=== PATIENT | male | born 1980 | race Caucasian/White ===

== ENCOUNTER 2017-10-24 17:48 | Emergency (ER) | payer BC ==
[2017-10-24] MEDS ORDERED: Gentamicin 0.3% Ophth Soln 5 ML Bottle EYERT ONE (17:49)
[2017-10-24] MEDS ORDERED: Fluorescein 1 MG Ophth Strip EYERT ONE (19:08)
[2017-10-24] MEDS ORDERED: Tetracaine HCl/PF 0.5% 4 ML Bottle EYERT ONE (19:08)
[2017-10-24] MEDS ORDERED: Balanced Salt Solution Ophth Irrig 30 ML Bottle EYERT ONE (19:27)
[2017-10-24] MEDS ORDERED: Gentamicin 0.3% Ophth Soln 5 ML Bottle ONE (20:05)
--- NOTE | 2017-10-24 20:07 | EDM.PDOC ---
ED HPI GENERAL MEDICAL PROBLEM - General Chief Complaint: ENT Problem Stated Complaint: [id number] SOMETHING IN EYE Time Seen by Provider: 10/24/17 19:15 Source of Information: Reports: Patient History Limitations: Reports: No Limitations - History of Present Illness INITIAL COMMENTS - FREE TEXT/NARRATIVE: woke with discomfort to right eye this am, throughout day irritation when turning toward right. 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 No blurred vision Right Eye Pain Score (Numeric/FACES): 3 - Related Data Allergies Allergy/AdvReac Type Severity Reaction Status Date / Time No Known Allergies Allergy Verified 10/24/17 18:24 Home Meds: Home Meds . [No Known Home Meds] 10/24/17 [History] Past Medical History - Past Health History Medical/Surgical History: Denies Medical/Surgical History Social & Family History - Tobacco Use Smoking Status *Q: Never Smoker - Caffeine Use Caffeine Use: Reports: Energy Drinks, Soda, Tea - Alcohol Use Days Per Week of Alcohol Use: 2 Number of Drinks Per Day: 2 Total Drinks Per Week: 4 - Recreational Drug Use Recreational Drug Use: No ED ROS GENERAL - Review of Systems Review Of Systems: See Below Constitutional: Reports: No Symptoms HEENT: Reports: Eye Pain (right) Respiratory: Reports: No Symptoms Cardiovascular: Reports: No Symptoms GI/Abdominal: Reports: No Symptoms Musculoskeletal: Reports: No Symptoms Skin: Reports: No Symptoms ED EXAM GENERAL W FULL EYE - Physical Exam Exam: See Below Exam Limited By: No Limitations General Appearance: Alert, Mild Distress Eye Exam: Bilateral Eye: EOMI, PERRL Eyelids: Right: Lid Everted for Exam Conjunctiva & Sclera: Right: Injected, Left: Normal Appearance Cornea Exam: Right: Examined with Flourescein, Bilateral: Normal Appearance Pupillary Size: Bilateral: 4 mm Pupillary Reaction: Bilateral: Brisk Comments: No obvious FB or corneal abrasion. Right eye irrigated. with NS. Ears: Normal External Exam Throat/Mouth: Normal Voice Head: Atraumatic, Normocephalic Neck: Normal Inspection Respiratory/Chest: Lungs Clear Neurological: Alert, Oriented, Normal Cognition Skin Exam: Warm, Dry, Intact, Normal Color Course - Vital Signs Last Recorded V/S: Last Vital Signs Temp 98.7 F 10/24/17 20:08 Pulse 74 10/24/17 20:08 Resp 17 10/24/17 20:08 BP 130/94 H 10/24/17 20:08 Pulse Ox 100 10/24/17 20:08 - Orders/Labs/Meds Meds: Medications Discontinued Medications Generic Name Dose Route Start Last Admin Trade Name Marychuy PRIvanna Reason Stop Dose Admin Balanced Salt Solution 200 ml 10/24/17 19:27 10/24/17 19:39 Eye Stream Eye Rinse EYERT 10/24/17 19:28 Not Given ONETIME ONE Fluorescein Sodium 1 mg 10/24/17 19:08 10/24/17 19:20 Ful-Britni EYERT 10/24/17 19:09 1 mg ONETIME ONE Administration Gentamicin Sulfate Confirm 10/24/17 20:05 Garamycin 0.3% Ophth Soln Administered 10/24/17 20:06 Dose 5 ml .ROUTE .STK-MED ONE Gentamicin Sulfate 5 ml 10/24/17 17:49 Garamycin 0.3% Ophth Soln EYERT 10/24/17 17:50 .STK-MED ONE Tetracaine HCl 1 ml 10/24/17 19:08 10/24/17 19:19 Tetracaine 0.5% Steri-Unit Adriana EYERT 10/24/17 19:09 2 drop ASDIRECTED ONE Administration Departure - Departure Time of Disposition: 20:05 Disposition: Home, Self-Care 01 Condition: Good Clinical Impression: Irritation of eye - Discharge Information Instructions: Ear Foreign Body, [id number] Referrals: Jaspal Whiting NP [Primary Care Provider] - Forms: ED Department Discharge Additional Instructions: follow up with eye clinic tomorrow if recurrent pain/ irritation gentamycin eye drops 2 3 times daily for 3 days rest eye tonight, tylenol or ibuprofen for discomfort.
== END 2017-10-24 20:15 | disposition home or self-care (01) ==
LOC: DL.ED 17:48
DX: H57.8 Other specified disorders of eye and adnexa (principal)
CPT/HCPCS: 99283; A9270

== ENCOUNTER 2017-12-20 11:42 | Emergency (ER) | payer OTHER, BC ==
--- NOTE | 2017-12-20 12:35 | CR ---
Clinical history: 37-year-old male right ankle injury (fall in grain bin). Interpretation: 3 views right ankle confirm pronounced asymmetric soft tissue swelling over the later al malleolus with associated underlying ankle joint effusion i.e. severe sprain. No underlying fracture or dislocation right ankle.
--- NOTE | 2017-12-20 12:38 | CR ---
Clinical history: 37-year-old male injured right foot and ankle (severe ankle sprain) i.e. missed isaias p in grain bin. Interpretation: Atavistic first cuneiform and hallux valgus with bunion. No sign of right foot fracture or dislocation. No foreign bodies.
--- NOTE | 2017-12-20 13:15 | EDM.PDOC ---
ED HPI GENERAL MEDICAL PROBLEM - General Chief Complaint: Lower Extremity Injury/Pain Stated Complaint: WC INJ R ANKLE. [phone] Time Seen by Provider: 12/20/17 13:14 Source of Information: Reports: Patient, RN, RN Notes Reviewed History Limitations: Reports: No Limitations - History of Present Illness INITIAL COMMENTS - FREE TEXT/NARRATIVE: Patient presents to ER with complaint of right ankle pain. A step broke and he fell through. He has abrasion of his right ribs. Onset: Today Location: Reports: Lower Extremity, Right Quality: Reports: Ache Severity: Moderate Improves with: Reports: None Worsens with: Reports: None Associated Symptoms: Reports: No Other Symptoms Right Ankle Pain Score (Numeric/FACES): 3 - Related Data Allergies Allergy/AdvReac Type Severity Reaction Status Date / Time No Known Allergies Allergy Verified 12/20/17 12:09 Home Meds: Home Meds . [No Known Home Meds] 10/24/17 [History] Past Medical History - Past Health History Medical/Surgical History: Denies Medical/Surgical History Gastrointestinal History: Reports: Irritable Bowel Syndrome Social & Family History - Tobacco Use Smoking Status *Q: Never Smoker - Caffeine Use Caffeine Use: Reports: Energy Drinks, Soda, Tea - Recreational Drug Use Recreational Drug Use: No Review of Systems - Review of Systems Review Of Systems: ROS reveals no pertinent complaints other than HPI. ED EXAM, GENERAL - Physical Exam Exam: See Below Exam Limited By: No Limitations General Appearance: Alert, WD/WN, No Apparent Distress Eye Exam: Bilateral Eye: Normal Inspection Ears: Normal External Exam, Normal Canal, Hearing Grossly Normal, Normal TMs Nose: Normal Inspection, Normal Mucosa, No Blood Throat/Mouth: Normal Inspection, Normal Lips, Normal Teeth, Normal Gums, Normal Oropharynx, Normal Voice, No Airway Compromise Head: Atraumatic, Normocephalic Neck: Normal Inspection, Supple, Non-Tender, Full Range of Motion Respiratory/Chest: No Respiratory Distress, Lungs Clear, Normal Breath Sounds, No Accessory Muscle Use, Chest Non-Tender Cardiovascular: Normal Peripheral Pulses, Regular Rate, Rhythm, No Edema, No Gallop, No JVD, No Murmur, No Rub GI/Abdominal: Normal Bowel Sounds, Soft, Non-Tender, No Organomegaly, No Distention, No Abnormal Bruit, No Mass (Male) Exam: Deferred Rectal (Males) Exam: Deferred Back Exam: Normal Inspection, Full Range of Motion, NT Extremities: Other (Right ankle swelling and bruising.) Neurological: Alert, Oriented, CN II-XII Intact, Normal Cognition, Normal Gait, Normal Reflexes, No Motor/Sensory Deficits Psychiatric: Normal Affect, Normal Mood Skin Exam: Other (ecchymotic right ankle. ) Lymphatic: No Adenopathy Course - Vital Signs Last Recorded V/S: Last Vital Signs Temp 99.0 F 12/20/17 11:58 Pulse 60 12/20/17 11:58 Resp 18 12/20/17 11:58 BP 119/83 12/20/17 11:58 Pulse Ox 100 12/20/17 11:58 - Orders/Labs/Meds Meds: Medications Discontinued Medications Generic Name Dose Route Start Last Admin Trade Name Freq PRN Reason Stop Dose Admin Ibuprofen 800 mg 12/20/17 13:24 12/20/17 13:30 Motrin PO 12/20/17 13:25 800 mg ONETIME ONE Administration - Radiology Interpretation Free Text/Narrative:: Right ankle x-ray: No underlying fracture or dislocation right ankle. See rad report. Right ankle and right foot pain: Atavistic first cuneiform and hallux valgus with bunion. No sign of right foot fracture or dislocation.No foreign bodies. See rad report. Departure - Departure Time of Disposition: 13:25 Disposition: Home, Self-Care 01 Condition: Fair Clinical Impression: Sprain of ankle Qualifiers: Encounter type: initial encounter Involved ligament of ankle: unspecified ligament Laterality: right Qualified Code(s): S93.401A - Sprain of unspecified ligament of right ankle, initial encounter - Discharge Information Instructions: Crutch Use, Adult, [id number]-[id number], Ankle Sprain, [id number], Elastic Bandage and RICE Referrals: Jaspal Whiting NP [Primary Care Provider] - Forms: ED Department Discharge Additional Instructions: Keep ankle wrapped as tolerated until pain and swelling improved Ibuprofen as directed for pain Elevate and ice the area as tolerated Follow up with primary care facility if no improvement May use crutches as tolerated until able to put weight on foot without pain.
[2017-12-20] MEDS ORDERED: Ibuprofen 800 MG Tab PO ONE (13:24)
== END 2017-12-20 13:38 | disposition home or self-care (01) ==
LOC: DL.ED 11:42
DX: S93.401A Sprain of unspecified ligament of right ankle, initial encounter (principal); S20.311A Abrasion of right front wall of thorax, initial encounter; W10.9XXA Fall (on) (from) unspecified stairs and steps, initial encounter
CPT/HCPCS: 73610; 73630; 99283; A9270

== ENCOUNTER 2018-02-05 20:48 | Emergency (ER) | payer BC, OTHER ==
--- NOTE | 2018-02-05 21:07 | EDM.PDOC ---
ED HPI GENERAL MEDICAL PROBLEM - General Chief Complaint: Genitourinary Problem Stated Complaint: CYST [phone] Time Seen by Provider: 02/05/18 21:07 Source of Information: Reports: Patient, RN, RN Notes Reviewed History Limitations: Reports: No Limitations - History of Present Illness INITIAL COMMENTS - FREE TEXT/NARRATIVE: Pt presents to the ER with c/o pain to the left scrotum. He states he has had a cyst there for a number of years, but this morning began having significant pain in the area, it has enlarged, and appears to have a "head" on it. Patient denies fever, chills, N/V/D, SOB, CP. Onset: Gradual Left Groin Pain Score (Numeric/FACES): 5 - Related Data Allergies Allergy/AdvReac Type Severity Reaction Status Date / Time No Known Allergies Allergy Verified 02/05/18 20:56 Home Meds: Home Meds . [No Known Home Meds] 10/24/17 [History] Past Medical History - Past Health History Medical/Surgical History: Denies Medical/Surgical History Gastrointestinal History: Reports: Irritable Bowel Syndrome Social & Family History - Caffeine Use Caffeine Use: Reports: Energy Drinks, Soda, Tea ED ROS GENERAL - Review of Systems Review Of Systems: ROS reveals no pertinent complaints other than HPI. ED EXAM, SKIN/RASH Exam: See Below Exam Limited By: No Limitations General Appearance: Alert, WD/WN, Mild Distress Eye Exam: Bilateral Eye: EOMI, Normal Inspection Ears: Normal External Exam, Hearing Grossly Normal Nose: Normal Inspection Throat/Mouth: Normal Inspection, Normal Voice, No Airway Compromise Head: Atraumatic, Normocephalic Neck: Normal Inspection, Supple, Non-Tender, Full Range of Motion Respiratory/Chest: No Respiratory Distress, Lungs Clear, Normal Breath Sounds, No Accessory Muscle Use, Chest Non-Tender Cardiovascular: Normal Peripheral Pulses, Regular Rate, Rhythm, No Edema, No Gallop, No JVD, No Murmur, No Rub Peripheral Pulses: 2+: Radial (L), Radial (R) GI/Abdominal: Normal Bowel Sounds, Soft, Non-Tender (Male) Exam: Scrotum Tenderness (L), Other (scrotal abscess, left) Rectal (Males) Exam: Deferred Back Exam: Normal Inspection, Full Range of Motion Extremities: Normal Inspection, Normal Range of Motion, Non-Tender, No Pedal Edema, Normal Capillary Refill Neurological: Alert, Oriented, CN II-XII Intact, Normal Cognition, Normal Gait, Normal Reflexes, No Motor/Sensory Deficits Psychiatric: Normal Affect, Normal Mood Skin: Warm, Dry, Intact, Normal Color, Other (Scrotal abscess approx. 1.0cm/ 1.0cm, intact, minimal erythema. Left scrotum/anterior) Location, Skin: Genital Associated features: Tenderness, Swelling Lymphatic: No Adenopathy ED SKIN PROCEDURES - I&D Site: left scrotum Skin Prep: Providone-Iodine (Betadine) Local Anesthesia: Lidocaine: 1% Plain Local Anesthetic Volume: 3cc Area Incised With: Needle (18 guage) Drainage: Purulent, Bloody, Moderate Amount Probed to Break Up Loculations: No Packed With: None Complications: No Course - Vital Signs Last Recorded V/S: Last Vital Signs Temp 98.0 F 02/05/18 20:55 Pulse 74 02/05/18 20:55 Resp 16 02/05/18 20:55 BP 147/99 H 02/05/18 20:55 Pulse Ox 100 02/05/18 20:55 - Orders/Labs/Meds Orders: Active Orders 24 hr Category Date Time Status CULTURE WOUND [RM] Urgent Lab 02/05/18 21:18 Received Meds: Medications Discontinued Medications Generic Name Dose Route Start Last Admin Trade Name Marychuy PRN Reason Stop Dose Admin Lidocaine HCl 30 ml 02/05/18 21:14 02/05/18 21:17 Xylocaine-Mpf 1% INJECT 02/05/18 21:15 30 ml ONETIME ONE Administration Trimethoprim/Sulfamethoxazole 1 tab 02/05/18 21:33 Septra Ds PO 02/05/18 21:34 ONETIME ONE Departure - Departure Time of Disposition: 21:36 Disposition: Home, Self-Care 01 Condition: Fair Clinical Impression: Abscess of scrotum - Discharge Information *PRESCRIPTION DRUG MONITORING PROGRAM REVIEWED*: No *COPY OF PRESCRIPTION DRUG MONITORING REPORT IN PATIENT ANA M: No Instructions: Skin Abscess, Gnuc-ry-Lvet, Incision and Drainage, Care After Forms: ED Department Discharge Additional Instructions: RX: Bactrim DS May use Ibuprofen and/or Tylenol as directed for pain. Monitor for changes. Follow up with your primary care facility - My Orders Last 24 Hours: My Active Orders 02/05/18 21:18 CULTURE WOUND [RM] Urgent - Assessment/Plan Last 24 Hours: My Active Orders 02/05/18 21:18 CULTURE WOUND [RM] Urgent
[2018-02-05] MEDS ORDERED: Lidocaine 1% 30 ML SDV INJECT ONE (21:14)
[2018-02-05] MEDS ORDERED: Sulfamethoxazole/Trimethoprim 800-160 MG Tab PO ONE (21:33)
== END 2018-02-05 21:48 | disposition home or self-care (01) ==
LOC: DL.ED 20:48
DX: N49.2 Inflammatory disorders of scrotum (principal)
CPT/HCPCS: 10021; 87070; 99283; A9270

== ENCOUNTER 2021-02-13 09:14 | Emergency (ER) | payer BC ==
[2021-02-13] MEDS: Ketorolac 30 MG/ML SDV IM ONE (09:59)
[2021-02-13] MEDS: Orphenadrine 60 MG/2 ML Inj IM ONE (09:59)
--- NOTE | 2021-02-13 10:24 | CR ---
PROCEDURE INFORMATION: Exam: XR Lumbosacral Spine Exam date and time: 02/13/2021 10:09 AM Age: 40 years old Clinical indication: Lumbago with sciatica; Right; Additional info: Right lateral hip pain; Radiates down through leg TECHNIQUE: Imaging protocol: XR of the lumbosacral spine. Views: 2 or 3 views. COMPARISON: No relevant prior studies available. FINDINGS: Bones/joints: There is anatomic alignment. There are 5 [id number] vertebral bodies. Marginal superior L2 endplate osteophyte. No compression fractures. There is preservation of the disc spaces and vertebral body heights. No listhesis. No aggressive osseous process. Soft tissues: Unremarkable. IMPRESSION: No acute abnormality. L2 superior endplate marginal spurring.
--- NOTE | 2021-02-13 10:35 | CR ---
PROCEDURE INFORMATION: Exam: XR Right Hip Exam date and time: 02/13/2021 10:07 AM Age: 40 years old Clinical indication: Difficulty in walking; Additional info: Right lateral hip pain; Radiates down through leg TECHNIQUE: Imaging protocol: XR Right hip. Views: 2 or 3 views hip with pelvis when performed. COMPARISON: No relevant prior studies available. FINDINGS: Bones/joints: There is anatomic alignment. No acute fracture. No aggressive osseous process. Sacroiliac joints are unremarkable. Bilateral hip joints are unremarkable. Soft tissues: Irregular striated 2.0 cm subcutaneous radiolucencies lateral right gluteal musculature may represent soft tissue mass, infection or microabscesses. IMPRESSION: 1. No acute osseous abnormality. 2. Subcutaneous striated radiolucencies at the right lateral gluteal musculature. Clinical inspection or additional diagnostic imaging may further delineate.
--- NOTE | 2021-02-13 10:55 | EDM.PDOC ---
ED HPI GENERAL MEDICAL PROBLEM - General Chief Complaint: Back Pain or Injury Stated Complaint: PAIN ON RIGHT HIP RIGHT FOOT GO NUMB Time Seen by Provider: 02/13/21 09:50 Source of Information: Reports: Patient, RN, RN Notes Reviewed History Limitations: Reports: No Limitations - History of Present Illness INITIAL COMMENTS - FREE TEXT/NARRATIVE: Shivam is a 40 y/o male who presents to the ED via personal vehicle with complaints of right lateral hip pain. He notes the pain started three days ago and has maintained in that time. He characterizes the pain as a sharp buzz that radiates down the lateral side of his leg and into his foot. He denies injury to the lower back or hip; he denies lower back pain. He denies incontinence of bowel/bladder, inability to void, saddle paresthesia, or loss of motor function to the extremity. Right Hip Pain Score (Numeric/FACES): 8 - Related Data Allergies Allergy/AdvReac Type Severity Reaction Status Date / Time No Known Allergies Allergy Verified 02/13/21 09:37 Home Meds: Home Meds . [No Known Home Meds] 10/24/17 [History] Past Medical History - Past Health History Medical/Surgical History: Denies Medical/Surgical History Gastrointestinal History: Reports: Irritable Bowel Syndrome Social & Family History - Tobacco Use Tobacco Use Status *Q: Unknown Ever Used Tobacco - Caffeine Use Caffeine Use: Reports: Coffee, Soda - Recreational Drug Use Recreational Drug Use: No Review of Systems - Review of Systems Review Of Systems: Comprehensive ROS is negative, except as noted in HPI. ED EXAM, GENERAL - Physical Exam Exam: See Below Exam Limited By: No Limitations General Appearance: Alert, Mild Distress (Pain to right hip) Eye Exam: Bilateral Eye: EOMI, Normal Inspection, PERRL (3mm) Ears: Normal External Exam, Hearing Grossly Normal Nose: Normal Inspection, Normal Mucosa, No Blood Throat/Mouth: Normal Inspection, Normal Oropharynx, Normal Voice, No Airway Compromise Head: Atraumatic, Normocephalic Neck: Normal Inspection, Supple, Non-Tender, Full Range of Motion. No: Lymphadenopathy (L), Lymphadenopathy (R) Respiratory/Chest: No Respiratory Distress, Lungs Clear, Normal Breath Sounds, No Accessory Muscle Use, Chest Non-Tender Cardiovascular: Normal Peripheral Pulses, Regular Rate, Rhythm, No Edema, No Gallop, No JVD, No Murmur, No Rub Peripheral Pulses: 2+: Radial (L), Radial (R), Dorsalis Pedis (L), Dorsalis Pedis (R) GI/Abdominal: Normal Bowel Sounds, Soft, Non-Tender, No Distention, No Abnormal Bruit, No Mass, Pelvis Stable (Male) Exam: Deferred Rectal (Males) Exam: Deferred Back Exam: Normal Inspection, Full Range of Motion. No: CVA Tenderness (L), CVA Tenderness (R) Extremities: Normal Range of Motion, No Pedal Edema, Normal Capillary Refill, Leg Pain (To right lateral hip). No: Joint Swelling, Increased Warmth, Mottled, Pallor, Redness Neurological: Alert, Oriented, CN II-XII Intact, Normal Cognition, Normal Gait, No Motor/Sensory Deficits Psychiatric: Normal Affect, Normal Mood Skin Exam: Warm, Dry, Intact, Normal Color, No Rash. No: Cyanosis, Ecchymosis, Erythema, Jaundice, Mottled, Pallor, Petechiae Lymphatic: No Adenopathy Course - Vital Signs Last Recorded V/S: Last Vital Signs Temp 97.6 F 02/13/21 09:32 Pulse 68 02/13/21 09:32 Resp 14 02/13/21 09:32 BP 125/80 02/13/21 09:32 Pulse Ox 99 02/13/21 09:32 - Orders/Labs/Meds Meds: Medications Discontinued Medications Generic Name Dose Route Start Last Admin Trade Name Marychuy PRN Reason Stop Dose Admin Ketorolac Tromethamine 60 mg 02/13/21 09:46 02/13/21 09:59 Ketorolac 30 Mg/Ml Sdv IM 02/13/21 09:47 60 mg ONETIME ONE Administration Orphenadrine Citrate 60 mg 02/13/21 09:46 02/13/21 09:59 Orphenadrine 60 Mg/2 Ml Inj IM 02/13/21 09:47 60 mg ONETIME ONE Administration - Radiology Interpretation Free Text/Narrative:: [facility] Final Radiology Report Call: [phone] assistance Online chat: [email or web address] Name: SHIVAM TRUJILLO Age: 40Years M Date: 02/13/2021 SSN: -- : 1980 Study: CR HIP MIN 2V OR 3V W PELVIS RT Requesting Physician: Natalie Guo Images: 3 Addl Studies: Provided Clinical History: Right lateral hip pain; radiates down through leg Contrast: Contrast Medium: Contrast Amount: Contrast Method: CONFIDENTIALITY STATEMENT This report is intended only for use by the referring physician, and only in accordance with law. If you received this in error, call [phone]. Page 1 of 1 PROCEDURE INFORMATION: Exam: XR Right Hip Exam date and time: 02/13/2021 10:07 AM Age: 40 years old Clinical indication: Difficulty in walking; Additional info: Right lateral hip pain; Radiates down through leg TECHNIQUE: Imaging protocol: XR Right hip. Views: 2 or 3 views hip with pelvis when performed. COMPARISON: No relevant prior studies available. FINDINGS: Bones/joints: There is anatomic alignment. No acute fracture. No aggressive osseous process. Sacroiliac joints are unremarkable. Bilateral hip joints are unremarkable. Soft tissues: Irregular striated 2.0 cm subcutaneous radiolucencies lateral right gluteal musculature may represent soft tissue mass, infection or microabscesses. IMPRESSION: 1. No acute osseous abnormality. 2. Subcutaneous striated radiolucencies at the right lateral gluteal musculature. Clinical inspection or additional diagnostic imaging may further delineate. Thank you for allowing us to participate in the care of your patient. Dictated and Authenticated by: Ashleigh Alvarenga MD 02/13/2021 10:34 AM Central Time ([place] & [place]) [facility] Final Radiology Report Call: [phone] assistance Online chat: [email or web address] Name: SHIVAM TRUJILLO Age: 40Years M Date: 02/13/2021 SSN: -- : 1980 Study: CR LUMBAR SPINE 2 OR 3V Requesting Physician: Natalie Guo Images: 3 Addl Studies: Provided Clinical History: Right lateral hip pain; radiates down through leg Contrast: Contrast Medium: Contrast Amount: Contrast Method: CONFIDENTIALITY STATEMENT This report is intended only for use by the referring physician, and only in accordance with law. If you received this in error, call [phone]. Page 1 of 1 PROCEDURE INFORMATION: Exam: XR Lumbosacral Spine Exam date and time: 02/13/2021 10:09 AM Age: 40 years old Clinical indication: Lumbago with sciatica; Right; Additional info: Right lateral hip pain; Radiates down through leg TECHNIQUE: Imaging protocol: XR of the lumbosacral spine. Views: 2 or 3 views. COMPARISON: No relevant prior studies available. FINDINGS: Bones/joints: There is anatomic alignment. There are 5 [id number] vertebral bodies. Marginal superior L2 endplate osteophyte. No compression fractures. There is preservation of the disc spaces and vertebral body heights. No listhesis. No aggressive osseous process. Soft tissues: Unremarkable. IMPRESSION: No acute abnormality. L2 superior endplate marginal spurring. Thank you for allowing us to participate in the care of your patient. Dictated and Authenticated by: Ashleigh Alvarenga MD 02/13/2021 10:24 AM Central Time ([place] & [place]) - Re-Assessments/Exams Free Text/Narrative Re-Assessment/Exam: 02/13/21 Ketorolac 60mg IM and Orphenadrine 60mg IM administered for right hip pain. Findings of examination and imaging reviewed with patient. Will treat muscle spasm with orphenadrine. Discussed supportive cares for right hip pain. Red flag signs and symptoms which would warrant reevaluation reviewed. Patient verbalized understanding and agreement with the plan of care. Departure - Departure Time of Disposition: 10:55 Disposition: Home, Self-Care 01 Condition: Good Clinical Impression: Right hip pain Leg muscle spasm Qualifiers: Laterality: right Qualified Code(s): M62.838 - Other muscle spasm - Discharge Information *PRESCRIPTION DRUG MONITORING PROGRAM REVIEWED*: Not Applicable *COPY OF PRESCRIPTION DRUG MONITORING REPORT IN PATIENT ANA M: Not Applicable Instructions: Muscle Cramps and Spasms Forms: ED Department Discharge Additional Instructions: 1.) Physical therapy referral provided, may take to any physical therapy location. 2.) You may take ibuprofen (Advil/Motrin) 400mg every six hours, as pain and swelling persists. You may also take acetaminophen (Tylenol) 650mg every six hours, as pain persists. You may stagger these medications so you are receiving a dose every three hours. 3.) You may alternate heat and cold compresses to the area, as pain persists. 4.) Follow up with your primary care provider regarding today's visit.
== END 2021-02-13 11:09 | disposition home or self-care (01) ==
LOC: DL.ED 09:14
DX: M25.551 Pain in right hip (principal); M62.838 Other muscle spasm
CPT/HCPCS: 72100; 96372; 99283; 99283-25; J1885; J2360

== ENCOUNTER 2023-05-31 22:11 | Emergency (ER) | payer BC ==
[2023-05-31] MEDS ORDERED: Diphtheria,Pertussis(Acell),Tetanus Vaccine 0.5 ML Syringe IM ONE (22:17)
[2023-05-31] MEDS ORDERED: Amoxicillin/Clavulanate K 875-125 MG Tab PO ONE (22:18)
[2023-05-31] MEDS ORDERED: Ibuprofen 600 MG Tab PO ONE (22:25)
== END 2023-05-31 22:47 | disposition home or self-care (01) ==
LOC: DL.ED 22:11
DX: S61.451A Open bite of right hand, initial encounter (principal); S61.452A Open bite of left hand, initial encounter; W54.0XXA Bitten by dog, initial encounter; Z23 Encounter for immunization
CPT/HCPCS: 90471; 90715; 99282; 99283-25; A9270-GY